=== PATIENT | male | born 1945 | race Two or more races ===

== ENCOUNTER 2022-06-07 16:29 | Emergency (ER) | payer OTHER ==
[~2022-06-07] VITALS: Ht 172.7 cm; Wt 64.4 kg
[2022-06-07] MEDS ORDERED: GLUCOTROL XL5 MG PO (16:42)
[2022-06-07] MEDS ORDERED: ACID REDUCER20 M1 PO (16:42)
== END 2022-06-07 19:11 | disposition home or self-care (01) ==
LOC: ER 16:29
DX: R10.9 Unspecified abdominal pain (principal); Z88.0 Allergy status to penicillin; I10 Essential (primary) hypertension; E11.9 Type 2 diabetes mellitus without complications; Z79.84 Long term (current) use of oral hypoglycemic drugs

== ENCOUNTER 2022-10-29 07:06 | Outpatient (CLI) | payer OTHER ==
[~2022-10-29 07:06] MED LIST: ACID REDUCER20 M1 PO; GLUCOTROL XL5 MG PO
== END 2022-10-29 07:07 | disposition home or self-care (01) ==
LOC: NUCLEAR 07:06
PROVIDERS: ATTEND Student in an Organized Health Care Education/Training Program
DX: R10.13 Epigastric pain (principal); Z88.0 Allergy status to penicillin
CPT/HCPCS: 78264; A9541

== ENCOUNTER 2022-11-04 07:09 | Outpatient (CLI) | payer OTHER | END 2022-11-04 07:11 | disposition home or self-care (01) | LOC: NUCLEAR 07:09 | PROVIDERS: ATTEND Student in an Organized Health Care Education/Training Program | DX: R10.13 Epigastric pain (principal); Z88.0 Allergy status to penicillin | CPT/HCPCS: 78227; A9537; J2805 ==